=== PATIENT | female | born 1995 | race Caucasian/White ===

== ENCOUNTER → 2020-09-22 | Day surgery (SDC) | payer OTHER ==
[~2020-09-22] MED LIST: CLARITIN10 MG PO; PERCOCET 10-321 EACH PO; SEASONIQUE 0.11 EACH PO
== END | disposition home or self-care (01) ==
LOC: OR 06:41
DX: L05.01 Pilonidal cyst with abscess (principal); E53.8 Deficiency of other specified B group vitamins; E55.9 Vitamin D deficiency, unspecified; Z83.3 Family history of diabetes mellitus
CPT/HCPCS: 84703; J0690; J1100; J1885; J2001; J2250; J2405; J2704; J3010; J7030; J7120